=== PATIENT | male | born 1985 | race Caucasian/White ===

== ENCOUNTER → 2016-09-13 15:47 | Outpatient (CLI) | payer OTHER ==
[2016-09-13 19:44] LABS: BASOPHILS 0.3 % (0-2); EOSINOPHILS 3.3 % (0-7); HEMATOCRIT 33.4 % (42.0-54.0); HEMOGLOBIN 10.3 g/dL (13.5-17.5); IMMATURE GRANULOCYTES 0.5 % (0-5); MCH 25.6 pg (26.0-34.0); MCHC 30.8 g/dL (31.0-37.0); MCV 83.1 fL (80.0-100.0); MEAN PLATELET VOLUME 10.4 fL (7.4-10.4); MONOCYTES 10.3 % (2-11); NEUTROPHILS 63.6 % (40-80); PLATELET COUNT 331 10x3/uL (130-400); RBC 4.02 10x6/uL (4.20-6.10); RDW 16.1 % (11.5-14.5); WBC 6.1 10x3/uL (4.8-10.8)
[2016-09-13 20:09] LABS: CREATININE - SERUM 0.8 mg/dL (0.6-1.3)
[2016-09-13 21:34] LABS: ERYTHROCYTE SEDIMENTATION RATE 10 mm/hr (0-15)
== END | disposition home or self-care (01) ==
LOC: D.LABREF 15:47
PROVIDERS: Student in an Organized Health Care Education/Training Program
DX: Z51.81 Encounter for therapeutic drug level monitoring (principal); Z79.2 Long term (current) use of antibiotics; B95.62 Methicillin resistant Staphylococcus aureus infection as the cause of diseases classified elsewhere; M46.20 Osteomyelitis of vertebra, site unspecified